=== PATIENT | female | born 1980 | race Caucasian/White ===

== ENCOUNTER 2024-01-03 07:34 | Day surgery (SDC) | payer BC ==
[~2024-01-03 07:34] MED LIST: Sodium Chloride 0.9% 10 ML Syringe FLUSH PRN
[2024-01-03] MEDS ORDERED: Lactated Ringers 1,000 ML IV ONE (07:35)
[2024-01-03] MEDS: Lactated Ringers 1,000 ML IV SCH (07:55)
[2024-01-03] MEDS: Pregabalin 25 MG Cap PO SCH (08:35)
[2024-01-03] MEDS: oxyCODONE ER 10 MG TAB.ER PO SCH (08:35)
[2024-01-03] MEDS: Acetaminophen 325 MG Tab PO SCH (08:35)
[2024-01-03] MEDS ORDERED: Ondansetron 4 MG/2 ML SDV ONE (08:50)
[2024-01-03] MEDS ORDERED: Propofol 200 MG/20 ML SDV ONE ×6 (08:52)
[2024-01-03] MEDS ORDERED: Midazolam 1 MG/ML 2 ML SDV ONE (08:57)
[2024-01-03] MEDS ORDERED: Sodium Chloride 0.9% 10 ML Syringe FLUSH SCH (09:00)
[2024-01-03] MEDS ORDERED: Phenylephrine 1% 10 MG/ML SDV ONE (09:19)
[2024-01-03] MEDS ORDERED: Lidocaine 1% 5 ML VIAL ONE (09:26)
[2024-01-03] MEDS ORDERED: ceFAZolin 2 GM Vial ONE (09:29)
[2024-01-03] MEDS ORDERED: ePHEDrine 50 MG/ML SDV ONE (09:55)
[2024-01-03] MEDS: oxyCODONE 5 MG Tab PO ONE (14:30)
[2024-01-03] MEDS: Vancomycin 1 GM SDV ONE (14:58)
[2024-01-03] MEDS: Tranexamic Acid 1,000 MG/10 ML Vial ONE (14:59)
[2024-01-03] MEDS: Morphine 8 MG, EPINEPHrine 0.3 MG, Cefuroxime 750 MG, Ketorolac 30 MG, Sodium Chloride ... PRN (15:01)
== END 2024-01-03 14:50 | disposition home or self-care (01) ==
LOC: JD.SDS 07:34
PROVIDERS: ATTEND Orthopaedic Surgery
DX: M16.11 Unilateral primary osteoarthritis, right hip (principal); F41.9 Anxiety disorder, unspecified; I10 Essential (primary) hypertension
CPT/HCPCS: 0055T; 27130; 73501; 97110; 97161; A9270; C1713; C1776; J0171; J0690; J0697; J1885; J2250; J2270; J2371; J2405; J2704; J3370; J7120; 01214; J3490